=== PATIENT | male | born 1980 | race Caucasian/White ===

== ENCOUNTER 2018-02-12 13:43 | Inpatient (IN) | payer OTHER ==
[~2018-02-12 13:43] MED LIST: CEFAZOLIN 1 GM INJ
[2018-02-12] MEDS ORDERED: DIPHENHYDRAMINE 50 MG INJ IV ×2 (15:00→16:00)
[2018-02-12] MEDS ORDERED: HYDROmorphONE 0.2 MG/ML PCA IV (15:00)
[2018-02-12] MEDS ORDERED: ZOLPIDEM 5 MG TAB PO (15:00)
[2018-02-12] MEDS ORDERED: CEPASTAT LOZENGE MT (15:00)
[2018-02-12] MEDS ORDERED: ACETAMINOPHEN 325 MG TAB PO (15:00)
[2018-02-12] MEDS ORDERED: AL HYDROX/MG HYDROX/SIMETH 30 ML CUP PO (15:00)
[2018-02-12] MEDS ORDERED: CEFAZOLIN 1 GM/50 ML (PMX) 50 ML IVPB (15:00)
[2018-02-12] MEDS ORDERED: D5W-0.45 NACL + KCL 20 MEQ 1,000 ML IV (15:00)
[2018-02-12] MEDS ORDERED: CYCLOBENZAPRINE 10 MG TAB PO (15:00)
[2018-02-12] MEDS ORDERED: NALOXONE (0.4 MG/ML) INJ IV (15:00)
[2018-02-12] MEDS ORDERED: BISACODYL 10 MG SUPP PR (15:00)
[2018-02-12] MEDS ORDERED: BUPIVACAINE 0.25%/EPI (MDV) 50 ML VIAL INJ (15:26)
[2018-02-12] MEDS ORDERED: LIDOCAINE 2% (SDV) 5 ML INJ (15:30)
[2018-02-12] MEDS ORDERED: SUCCINYLCHOLINE CHLORIDE 100 MG/5 ML SYG IV (15:30)
[2018-02-12] MEDS ORDERED: ROCURONIUM 50 MG INJ (15:30)
[2018-02-12] MEDS ORDERED: NEOSTIGMINE 3 MG/3 ML SYRINGE ×2 (15:30→17:12)
[2018-02-12] MEDS ORDERED: GLYCOPYRROLATE 0.4 MG INJ ×2 (15:30→17:12)
[2018-02-12] MEDS ORDERED: PROPOFOL 20 ML (15:30)
[2018-02-12] MEDS ORDERED: MEPERIDINE 100 MG INJ (15:31)
[2018-02-12] MEDS ORDERED: GELATIN SIZE 100 SPONGE (15:39)
[2018-02-12] MEDS ORDERED: POLYMYXIN/BACITRACIN 1L IRRIG (15:55)
[2018-02-12] MEDS ORDERED: OXYCODONE/ACETAMINOPHEN (5/325) TAB PO ×2 (16:00)
[2018-02-12] MEDS ORDERED: hydrALAzine 20 MG INJ IV (16:00)
[2018-02-12] MEDS ORDERED: ONDANSETRON 4 MG INJ IV (16:00)
[2018-02-12] MEDS ORDERED: METOCLOPRAMIDE 10 MG INJ IV (16:00)
[2018-02-12] MEDS ORDERED: LABETALOL HCL 20MG INJ IV (16:00)
[2018-02-12] MEDS ORDERED: EPHEDrine SULFATE 50 MG/5 ML SYG IV (16:00)
[2018-02-12] MEDS ORDERED: HYDROmorphONE (0.2 MG/ML) 10ML SYG IV ×2 (16:00)
[2018-02-12] MEDS ORDERED: MIDAZOLAM 1 MG/ML 2 ML INJ IV (16:00)
[2018-02-12] MEDS ORDERED: FENTAnyl 50 MCG/ML VIAL IV ×3 (16:00)
[2018-02-12] MEDS: POLYMYXIN/BACITRACIN 1L IRRIG (16:12)
[2018-02-12] MEDS: CA CHLORIDE 10% 10 ML SYRINGE (16:12)
[2018-02-12] MEDS: GELATIN SIZE 100 SPONGE (16:17)
[2018-02-12] MEDS: SURGIFOAM POWDER 1 GM KIT (16:18)
[2018-02-12] MEDS: HEPARIN 1000 UNITS/ML 10 ML INJ (16:19)
[2018-02-12] MEDS: THROMBIN 5000 UNIT VIAL (16:19)
[2018-02-12] MEDS ORDERED: hydrALAzine 20 MG INJ (16:21)
[2018-02-12] MEDS: FENTAnyl 50 MCG/ML VIAL (16:26)
[2018-02-12] MEDS: BUPIVACAINE 0.25% (MPF) 30 ML INJ (17:05)
[2018-02-12] MEDS ORDERED: ONDANSETRON 4 MG INJ (17:14)
[2018-02-12] MEDS: MEPERIDINE 25 MG INJ IV (17:36)
[2018-02-12] MEDS: HYDROmorphONE (0.2 MG/ML) 10ML SYG IV ×2 (17:36→17:45)
[2018-02-12] MEDS: ONDANSETRON 4 MG INJ IV (17:36)
[2018-02-12] MEDS ORDERED: DOCUSATE SODIUM 100 MG CAP PO (21:00)
[2018-02-12] MEDS: HYDROmorphONE 0.5 MG/0.5 ML SYG IV (21:29)
[2018-02-13] MEDS ORDERED: PANTOPRAZOLE 40 MG INJ IV (06:00)
[2018-02-13] MEDS ORDERED: HYDROCODONE/APAP (10/325) TAB PO ×2 (10:00)
== END 2018-02-12 21:40 | disposition home or self-care (01) | DRG 520 ==
LOC: REC 13:43 → MS1 19:35
PROC: 0SB40ZZ Excision of Lumbosacral Disc, Open Approach (ICD-10-PCS; principal; 2018-02-12 15:30)
PROC: 07DR3ZX Extraction of Iliac Bone Marrow, Percutaneous Approach, Diagnostic (ICD-10-PCS; 2018-02-12 15:30)
PROC: 4A11X4G Monitoring of Peripheral Nervous Electrical Activity, Intraoperative, External Approach (ICD-10-PCS; 2018-02-12 15:30)
DX: M51.17 Intervertebral disc disorders with radiculopathy, lumbosacral region (principal)
CPT/HCPCS: 72114; 86999